=== PATIENT | male | born 1965 | race Caucasian/White ===

== ENCOUNTER 2020-01-15 13:14 | Emergency (ER) | payer OTHER ==
[2020-01-15 13:51] LABS: ABSOLUTE EOSINOPHILS # (AUTO) 0.4 10^3/uL (0.0-0.6); ABSOLUTE LYMPHOCYTES (AUTO) 2.2 10^3/uL (0.5-4.7); ABSOLUTE MONOCYTES (AUTO) 0.7 10^3/uL (0.1-1.4); ABSOLUTE NEUT (AUTO) 6.6 10^3/uL (1.7-8.2); BASOPHILS % (AUTO) 0.5 % (0-2); EOSINOPHILS % (AUTO) 3.8 % (0-6); HEMATOCRIT 43.4 % (37.9-51.0); MEAN CORPUSCULAR HEMOGLOBIN 29.6 pg (27.0-33.4); MEAN CORPUSCULAR HGB CONC 34.5 g/dL (32.0-36.0); MEAN CORPUSCULAR VOLUME 86 fl (80-97); MONOCYTES % (AUTO) 7.2 % (3-13); PLATELET COUNT 246 10^3/uL (150-450); RED BLOOD COUNT 5.07 10^6/uL (4.35-5.55); RED CELL DISTRIBUTION WIDTH 13.9 % (11.5-14.0); SEGMENTED NEUTROPHILS % (AUTO) 66.5 % (42-78); TOTAL CELLS COUNTED % (AUTO) 100 %
[2020-01-15 14:14] LABS: CREATINE KINASE MB 0.58 ng/mL (<4.55)
[2020-01-15 14:19] LABS: TROPONIN I < 0.012 ng/mL
[2020-01-15 14:26] LABS: ALBUMIN 3.8 g/dL (3.5-5.0); ALKALINE PHOSPHATASE 88 U/L (38-126); ANION GAP 9 (5-19); ASPARTATE AMINO TRANSFERASE 53 U/L (17-59); BILIRUBIN,DIRECT 0.2 mg/dL (0.0-0.4); BILIRUBIN,TOTAL 0.5 mg/dL (0.2-1.3); BLOOD UREA NITROGEN 24 mg/dL (7-20); CALCIUM 9.3 mg/dL (8.4-10.2); CARBON DIOXIDE 26 mmol/L (22-30); CHLORIDE 104 mmol/L (98-107); CREATINE KINASE 75 U/L (55-170); GLUCOSE 96 mg/dL (75-110); POTASSIUM 4.3 mmol/L (3.6-5.0); TOTAL PROTEIN 6.7 g/dL (6.3-8.2)
[2020-01-15] MEDS ORDERED: NORMAL SALINE 1000 ML 1,000 ML IV ONE ×2 (14:34→15:55)
--- NOTE | 2020-01-15 14:35 | ER Document Report ---
ED General - General Chief Complaint: Dizziness Stated Complaint: BLOOD PRESSURE ISSUES Time Seen by Provider: 01/15/20 14:20 Primary Care Provider: POPEYE,JOHN [Primary Care Provider] - Follow up as needed - [facility] Notes: Patient is a 54 y/o male with a hx of HTN who presents with dizziness and hypotension that began earlier today. Patient states that at around 8AM he became dizzy which he describes as being unbalanced and a rocking sensation. He states he took his blood pressure twice, first reading being 80/49 and second reading being 90/50. He went to [facility] [address] and was found to be hypoten sive and they called EMS to take him to the emergency department. Patient reports tension-like headache but denies blurred vision, syncope, nausea, vomiting, chest pain, shortness of breath, and abdominal pain. He denies any recent changes to his blood pressure medication and he last took his medications yesterday afternoon. He denies taking any medications this morning. Patient denies tobacco or alcohol use. - Related Data Allergies/Adverse Reactions: morphine [Morphine] Allergy (Verified 07/16/13 18:30) Past Medical History - General Information source: Patient - Social History Smoking Status: Unknown if Ever Smoked Frequency of alcohol use: None Family History: Reviewed & Not Pertinent Patient has homicidal ideation: No - Past Medical History Cardiac Medical History: Reports: Hx Hypercholesterolemia - borderline, Hx H ypertension Denies: Hx Atrial Fibrillation, Hx Congestive Heart Failure, Hx Coronary Artery Disease, Hx Heart Attack, Hx Peripheral Vascular Disease, Hx Pulmonary Embolism, Hx Heart Murmur Pulmonary Medical History: Reports: Hx Bronchitis, Hx Pneumonia Denies: Hx Asthma, Hx COPD, Hx Respiratory Failure, Hx Sleep Apnea, Hx Tuberculosis Neurological Medical History: Denies: Hx Cerebrovascular Accident, Hx Seizures Endocrine Medical History: Denies: Hx Graves' Disease, Hx Hyperthyroidism, Hx Hypothyroidism Renal/ Medical History: Denies: Hx Benign Prostatic Hyperplasia, Hx End Stage Renal Disease, Hx Kidney Stones, Hx Peritoneal Dialysis Malignancy Medical History: Denies Hx Leukemia, Denies Hx Lung Cancer GI Medical History: Reports: Hx Gastroesophageal Reflux Disease, Hx Hiatal Hernia. Denies: Hx Crohn's Disease, Hx Irritable Bowel, Hx Liver Failure, Hx Pancreatitis, Hx Ulcer Musculoskeletal Medical History: Reports Hx Arthritis, Denies Hx Fibromyalgia, Denies Hx Muscular Dystrophy, Denies Hx Systemic Lupus Erythematosus Psychiatric Medical History: Denies: Hx Bipolar Disorder, Hx Depression, Hx Post Traumatic Stress Disorder, Hx Schizophrenia Traumatic Medical History: Denies: Hx Fractures Infectious Medical History: Denies: Hx HIV Past Surgical History: Reports: Hx Cholecystectomy. Denies: Hx Appendectomy, Hx Bowel Surgery, Hx Colostomy, Hx Coronary Artery Bypass Graft, Hx Gastric Bypass Surgery, Hx Herniorrhaphy, Hx Pacemaker, Hx Tonsillectomy - Immunizations Immunizations up to date: Yes Hx Diphtheria, Pertussis, Tetanus Vaccination: Yes Hx Pneumococcal Vaccination: 02/28/13 Review of Systems - Review of Systems Constitutional: No symptoms reported EENT: No symptoms reported Cardiovascular: No symptoms reported Respiratory: No symptoms reported Gastrointestinal: No symptoms reported Genitourinary: No symptoms reported Male Genitourinary: No symptoms reported Musculoskeletal: No symptoms reported Skin: No symptoms reported Hematologic/Lymphatic: No symptoms reported Neurological/Psychological: See HPI Physical Exam - Vital signs Vitals: Resp Pulse Ox 17 93 01/15/20 13:26 01/15/20 13:26 - Notes Notes: PHYSICAL EXAMINATION: VITALS: Vitals reviewed and mildly hypotensive. GENERAL: Well-appearing, well-nourished and in no acute distress. HEAD: Atraumatic, normocephalic. EYES: Pupils equal, round, and reactive to light, extraocular movements intact, sclera anicteric, conjunctiva are normal. ENT: Nares patent. Moist mucous membranes. Oropharynx clear without exudates. NECK: Normal range of motion, supple without lymphadenopathy. LUNGS: Breath sounds clear to auscultation bilaterally and equal. No wheezes, rales, or rhonchi. HEART: Regular, rate, and rhythm without murmurs. ABDOMEN: Soft, nontender, normoactive bowel sounds. No guarding, no rebound. No masses appreciated. EXTREMITIES: Normal range of motion, no pitting or edema. No cyanosis. NEUROLOGICAL: No focal neurological deficits. Moves all extremities spo ntaneously and on command. No pronator drift. [id number] testing normal. PSYCH: Normal mood, normal affect. SKIN: Warm, Dry, normal turgor, no rashes or lesions noted. Course - Re-evaluation Re-evalutation: Patient is a 54 y/o male who presents with dizziness and hypotension that began earlier today. Patient mildly hypotensive with a BP of 109/59. Physical exam normal with no nystagmus, CBC is unremarkable and within normal limits. CMP shows an elevated Cr of 1.82 and BUN of 24. UA shows elevated protein of 30, specific gravity of 1.020 and hyaline casts of 20 which are consistent with dehydration. Troponin negative. Patient was unable to tolerate orthostatics as he became dizzy while standing. BP was 113/70 while supine and 109/74 while sitting. 01/15/20 15:55 I spoke with my supervising physician, Dr. Rose, concerning this patient. He recommends giving another 1L of NS and reassessing the patient afterwards to see if he can ambulate well without becoming dizzy and hypotensive. 01/15/20 19:05 Patient re-evaluated after 2nd liter of IVF. He states he is feeling better. With RN, we reassessed his orthostatics which improved significantly. Standing BP of 128/87. Patient denies any dizziness. Patient's symptoms and workup are consistent with dehydration. I spoke with Dr. Rose again and he recommends having the patient stop his HCTZ until he can be evaluated by his PCP. Return precautions and follow up instructions given. Patient will be discharged home. Patient understands and is in agreement with the plan. - Vital Signs Vital signs: Temp Pulse Resp BP Pulse Ox 98.2 F 74 14 108/79 92 01/15/20 13:34 01/15/20 15:30 01/15/20 16:47 01/15/20 16:47 01/15/20 16:47 - Laboratory Result Diagrams: 01/15/20 13:26 01/15/20 13:26 Laboratory results interpreted by me: 01/15/20 01/15/20 13:26 14:38 BUN 24 H Creatinine 1.82 H Est GFR ( Amer) 47 L Est GFR (MDRD) Non-Af 39 L ALT 73 H Urine Protein 30 H Urine Urobilinogen 2.0 H - EKG Interpretation by Me Additional EKG results interpreted by me: Sinus rhythm with a rate of 69. QTc 425. Borderline left axis deviation. Premature atrial complex. No T wave inversions or ST segment changes in consecutive leads. Discharge - Discharge Clinical Impression: Dehydration, Dizziness Hypotension Qualifiers: Hypotension type: unspecified hypotension type Qualified Code(s): I95.9 - Hypotension, unspecified Condition: Stable Disposition: HOME, SELF-CARE Additional Instructions: Stop taking hydrocholorthiazide until you consult your primary care provider Dehydration Dehydration can result from vomiting or diarrhea, fever, or decreased intake of fluids. If severe, hospitalization and intravenous fluids may be required. Most cases are treated at home with fluids by mouth. For the next 24 hours, drink lots of clear fluids. In mild cases, this can be soda pop or sports drinks. For more severe dehydration, the doctor may recommend special fluids such as Pedialyte or Lytren. Try to get three liters (3 quarts) of fluid per day. If vomiting occurs, continue to drink the fluids frequently (every 15 to 20 minutes), but in small amounts (one or two ounces). Depending on the type of dehydration, the doctor may prescribe antinausea medicine or potassium replacements. Call the doctor or return for re-examination if you become progressively weak, vomit repeatedly, or have other new symptoms. Hypotension Your blood pressure is low. Low blood pressure can make you feel weak, lightheaded, and even make you pass out. Low blood pressure can be caused by dehydration or blood loss. Problems with the heart, kidneys, or blood vessels can cause hypotension. Certain medications can make your blood pressure abnormally low. Infection can lower blood pressure. In many cases, the person is totally healthy, but for unknown reasons, the blood pressure falls when they stand up. This is called benign orthostatic hypotension. The treatment of low blood pressure depends on the severity of the symptoms, and on the underlying cause. Sometimes it's not possible to identify a cause. At this time, it doesn't appear that the problem is serious enough to require hospitalization. Medicines that could be contributing to the problem can be withheld or reduced in dosage if your doctor approves. Get plenty of fluids. Eat a healthy diet. Be careful to stand up slowly. If you feel suddenly lightheaded or if your vision goes collins, sit or lie down at once. Don't drive or operate machinery until the symptoms are under control. Return or call the doctor if you develop fainting or severe dizziness, severe weakness, problems with vision, chest pain, shortness of breath, fever, or confusion. Referrals: [facility] [Primary [facility]] - Follow up as needed
[2020-01-15 14:57] LABS: APPEARANCE,URINE CLEAR; BILIRUBIN,URINE NEGATIVE (NEGATIVE); COLOR,URINE AMBER; GLUCOSE, URINE NEGATIVE (NEGATIVE); KETONES,URINE NEGATIVE (NEGATIVE); LEUKOCYTE ESTERASE,URINE NEGATIVE (NEGATIVE); NITRITE,URINE NEGATIVE (NEGATIVE); PROTEIN,URINE 30 mg/dL (NEGATIVE)
--- NOTE | 2020-01-15 15:16 | EKG REPORT ---
SEVERITY:- OTHERWISE NORMAL ECG - SINUS RHYTHM ATRIAL PREMATURE COMPLEX BORDERLINE LEFT AXIS DEVIATION : Confirmed by: Carmen Watkins MD 15-Jan-2020 15:16:08
[2020-01-15 19:31] VITALS: BP 128/87
== END 2020-01-15 19:31 | disposition home or self-care (01) ==
LOC: ER 13:14
DX: E86.0 Dehydration (principal); R42 Dizziness and giddiness; I95.9 Hypotension, unspecified; I10 Essential (primary) hypertension; E78.00 Pure hypercholesterolemia, unspecified; Z88.6 Allergy status to analgesic agent; Z90.49 Acquired absence of other specified parts of digestive tract
CPT/HCPCS: 93005; 99284; 96360; 96361; 36415; 82553; 82550; 85025; 80053; 81001; 84484; 93010; J7030

== ENCOUNTER 2020-01-16 20:40 | Emergency (ER) | payer OTHER ==
--- NOTE | 2020-01-16 21:11 | ER Document Report ---
ED Medical Screen (RME) - General Chief Complaint: Chest Pain > 30 Stated Complaint: CHEST PAIN Time Seen by Provider: 01/16/20 21:08 Primary Care Provider: POPEYE,JOHN [Primary Care Provider] - Follow up as needed Mode of Arrival: Ambulatory Information source: Patient Notes: 54-year-old male presented to ED for complaint of right upper chest pain x5 tonight. He states there is an electric-like pain then numbness to both arms and hands. He states he is not having pain right now but he does feel numbness in both hands and fingers. He states this all started about 6 or 630. Denies any previous cardiac problems. Yesterday he was here for dizziness and low blood pressure they gave him fluids he felt better and he went home. We will repeat chest x-ray blood and he will be seen again for this new problem. Blood pressure is 157/87 at this time temps 98 sats 97% 72 pulse of 22 respirations. I have greeted and performed a rapid initial assessment of this patient. A comprehensive ED assessment and evaluation of the patient, analysis of test results and completion of medical decision making process will be conducted by an additional ED providers. - Related Data Allergies/Adverse Reactions: morphine [Morphine] Allergy (Verified 07/16/13 18:30) Home Medications: Seen yesterday for dizzy and low BP visit Past Medical History - Social History Chew tobacco use (# tins/day): No Frequency of alcohol use: None Drug Abuse: None - Past Medical History Cardiac Medical History: Reports: Hx Hypercholesterolemia - borderline, Hx Hypertension Denies: Hx Atrial Fibrillation, Hx Congestive Heart Failure, Hx Coronary Artery Disease, Hx Heart Attack, Hx Peripheral Vascular Disease, Hx Pulmonary Embolism, Hx Heart Murmur Pulmonary Medical History: Reports: Hx Bronchitis, Hx Pneumonia Denies: Hx Asthma, Hx COPD, Hx Respiratory Failure, Hx Sleep Apnea, Hx Tuberculosis Neurological Medical History: Denies: Hx Cerebrovascular Accident, Hx Seizures Endocrine Medical History: Denies: Hx Graves' Disease, Hx Hyperthyroidism, Hx Hypothyroidism Renal/ Medical History: Denies: Hx Benign Prostatic Hyperplasia, Hx End Stage Renal Disease, Hx Kidney Stones, Hx Peritoneal Dialysis Malignancy Medical History: Denies Hx Leukemia, Denies Hx Lung Cancer GI Medical History: Reports: Hx Gastroesophageal Reflux Disease, Hx Hiatal Hernia. Denies: Hx Crohn's Disease, Hx Irritable Bowel, Hx Liver Failure, Hx Pancreatitis, Hx Ulcer Musculoskeltal Medical History: Reports Hx Arthritis, Denies Hx Fibromyalgia, Denies Hx Muscular Dystrophy, Denies Hx Systemic Lupus Erythematosus Psychiatric Medical History: Denies: Hx Bipolar Disorder, Hx Depression, Hx Post Traumatic Stress Disorder, Hx Schizophrenia Traumatic Medical History: Denies: Hx Fractures Infectious Medical History: Denies: Hx HIV Past Surgical History: Reports: Hx Cholecystectomy. Denies: Hx Appendectomy, Hx Bowel Surgery, Hx Colostomy, Hx Coronary Artery Bypass Graft, Hx Gastric Bypass Surgery, Hx Herniorrhaphy, Hx Pacemaker, Hx Tonsillectomy - Immunizations Immunizations up to date: Yes Hx Diphtheria, Pertussis, Tetanus Vaccination: Yes Physical Exam - Vital signs Vitals: Temp Pulse Resp BP Pulse Ox 98.0 F 72 22 H 157/87 H 97 01/16/20 20:52 01/16/20 20:52 01/16/20 20:52 01/16/20 20:52 01/16/20 20:52 Course - Vital Signs Vital signs: Temp Pulse Resp BP Pulse Ox 98.0 F 72 22 H 157/87 H 97 01/16/20 20:52 01/16/20 20:52 01/16/20 20:52 01/16/20 20:52 01/16/20 20:52 Doctor's Discharge - Discharge Referrals: [facility] [[facility]] - Follow up as needed
--- NOTE | 2020-01-16 22:04 | RADIOLOGY REPORT (SQ) ---
EXAM DESCRIPTION: XR CHEST 2 VIEWS COMPLETED DATE/TME: 01/16/2020 21:31 CLINICAL HISTORY: 54 years, Male, Chest pain to the right numbness down the fingers COMPARISON: Chest x-ray 07/16/2013 TECHNIQUE: PA and lateral views. FINDINGS: Cardiomediastinal silhouette is not enlarged. Question subtle atelectasis medial left lower lobe. No suspicious pleural disease..
[2020-01-16 22:10] LABS: APPEARANCE,URINE CLEAR; BILIRUBIN,URINE NEGATIVE (NEGATIVE); COLOR,URINE STRAW; GLUCOSE, URINE NEGATIVE (NEGATIVE); KETONES,URINE NEGATIVE (NEGATIVE); LEUKOCYTE ESTERASE,URINE NEGATIVE (NEGATIVE); NITRITE,URINE NEGATIVE (NEGATIVE); PROTEIN,URINE NEGATIVE (NEGATIVE); URINE SPECIFIC GRAVITY 1.006; UROBILINOGEN,URINE NEGATIVE mg/dL (<2.0)
[2020-01-16 22:15] LABS: ABSOLUTE EOSINOPHILS # (AUTO) 0.4 10^3/uL (0.0-0.6); ABSOLUTE LYMPHOCYTES (AUTO) 1.3 10^3/uL (0.5-4.7); ABSOLUTE MONOCYTES (AUTO) 0.4 10^3/uL (0.1-1.4); ABSOLUTE NEUT (AUTO) 5.6 10^3/uL (1.7-8.2); BASOPHILS % (AUTO) 0.5 % (0-2); HEMATOCRIT 42.7 % (37.9-51.0); HEMOGLOBIN 14.9 g/dL (13.5-17.0); LYMPHOCYTES % (AUTO) 17.2 % (13-45); MEAN CORPUSCULAR HEMOGLOBIN 29.7 pg (27.0-33.4); MEAN CORPUSCULAR HGB CONC 34.9 g/dL (32.0-36.0); MEAN CORPUSCULAR VOLUME 85 fl (80-97); MONOCYTES % (AUTO) 5.8 % (3-13); PLATELET COUNT 259 10^3/uL (150-450); RED BLOOD COUNT 5.01 10^6/uL (4.35-5.55); RED CELL DISTRIBUTION WIDTH 13.3 % (11.5-14.0); SEGMENTED NEUTROPHILS % (AUTO) 71.5 % (42-78); TOTAL CELLS COUNTED % (AUTO) 100 %; WHITE BLOOD COUNT 7.8 10^3/uL (4.0-10.5)
[2020-01-16 22:31] LABS: ALKALINE PHOSPHATASE 91 U/L (38-126); ANION GAP 8 (5-19); ASPARTATE AMINO TRANSFERASE 45 U/L (17-59); BILIRUBIN,DIRECT 0.1 mg/dL (0.0-0.4); BILIRUBIN,TOTAL 0.4 mg/dL (0.2-1.3); BLOOD UREA NITROGEN 15 mg/dL (7-20); CALCIUM 9.4 mg/dL (8.4-10.2); CARBON DIOXIDE 28 mmol/L (22-30); CHLORIDE 101 mmol/L (98-107); CREATINE KINASE 89 U/L (55-170); GLUCOSE 96 mg/dL (75-110); POTASSIUM 4.1 mmol/L (3.6-5.0)
[2020-01-17] MEDS ORDERED: ASPIRIN 325 MG TABLET PO ONE (01:34)
--- NOTE | 2020-01-17 02:14 | ER Document Report ---
ED Cardiac - General Chief Complaint: Chest Pain > 30 Stated Complaint: CHEST PAIN Time Seen by Provider: 01/16/20 21:08 Primary Care Provider: JASON YAN MD [ACTIVE PROVISIONAL STAFF] - Follow up in 3-5 days [facility] [Primary [facility] Provider] - Follow up as needed Mode of Arrival: Ambulatory - [facility] Notes: Patient is a 54-year-old male with a past medical history of back pain and hypertension who presents with chest pain. Patient states he had several episodes this evening of sharp midsternal chest pain that lasts for several seconds and radiates "electric shocks" down both of his arms. Currently denies any chest pain. No shortness of breath. No lightheadedness or dizziness. He was seen in the ER yesterday for low blood pressure and was given fluids and felt much better. He is denying any low blood pressure today. - Related Data Allergies/Adverse Reactions: morphine [Morphine] Allergy (Verified 07/16/13 18:30) Home Medications: Seen yesterday for dizzy and low BP visit Past Medical History - General Information source: Patient - Social History Smoking Status: Never Smoker Chew tobacco use (# tins/day): No Frequency of alcohol use: None Drug Abuse: None Family History: Reviewed & Not Pertinent - Past Medical History Cardiac Medical History: Reports: Hx Hypercholesterolemia - borderline, Hx Hypertension Denies: Hx Atrial Fibrillation, Hx Congestive Heart Failure, Hx Coronary Artery Disease, Hx Heart Attack, Hx Peripheral Vascular Disease, Hx Pulmonary Embolism, Hx Heart Murmur Pulmonary Medical History: Reports: Hx Bronchitis, Hx Pneumonia Denies: Hx Asthma, Hx COPD, Hx Respiratory Failure, Hx Sleep Apnea, Hx Tuberculosis Neurological Medical History: Denies: Hx Cerebrovascular Accident, Hx Seizures Endocrine Medical History: Denies: Hx Graves' Disease, Hx Hyperthyroidism, Hx Hypothyroidism Renal/ Medical History: Denies: Hx Benign Prostatic Hyperplasia, Hx End Stage Renal Disease, Hx Kidney Stones, Hx Peritoneal Dialysis Malignancy Medical History: Denies Hx Leukemia, Denies Hx Lung Cancer GI Medical History: Reports: Hx Gastroesophageal Reflux Disease, Hx Hiatal Hernia. Denies: Hx Crohn's Disease, Hx Irritable Bowel, Hx Liver Failure, Hx Pancreatitis, Hx Ulcer Musculoskeletal Medical History: Reports Hx Arthritis, Denies Hx Fibromyalgia, Denies Hx Muscular Dystrophy, Denies Hx Systemic Lupus Erythematosus Psychiatric Medical History: Denies: Hx Bipolar Disorder, Hx Depression, Hx Post Traumatic Stress Disorder, Hx Schizophrenia Traumatic Medical History: Denies: Hx Fractures Infectious Medical History: Denies: Hx HIV Past Surgical History: Reports: Hx Cholecystectomy. Denies: Hx Appendectomy, Hx Bowel Surgery, Hx Colostomy, Hx Coronary Artery Bypass Graft, Hx Gastric Bypass Surgery, Hx Herniorrhaphy, Hx Pacemaker, Hx Tonsillectomy - Immunizations Immunizations up to date: Yes Hx Diphtheria, Pertussis, Tetanus Vaccination: Yes Hx Pneumococcal Vaccination: 02/28/13 Review of Systems - Review of Systems Notes: CONSTITUTIONAL: No fever, fatigue or weight loss. SKIN: No rash. HENT: No congestion, ear pain, or sore throat. EYES: No recent vision problems or eye pain. CARDIOVASCULAR: Positive for chest pain. RESPIRATORY: No cough, shortness of breath, congestion, or wheezing. GASTROINTESTINAL: No abdominal pain, nausea, vomiting, bloody stools or diarrhea. GENITOURINARY: No dysuria. MUSCULOSKELETAL: No joint pain or swelling. Positive for chronic back pain. NEUROLOGIC: No seizures. No headache, focal weakness or sensory changes. HEMATOLOGIC: No unusual bruising or bleeding. PSYCHIATRIC: No depression or anxiety. Physical Exam - Vital signs Vitals: Temp Pulse Resp BP Pulse Ox 98.0 F 72 22 H 157/87 H 97 01/16/20 20:52 01/16/20 20:52 01/16/20 20:52 01/16/20 20:52 01/16/20 20:52 - General General appearance: Appears well Notes: VITAL SIGNS: Within normal limits. GENERAL: No acute distress, non-toxic appearance. HEAD: Normal with no signs of head trauma. EYES: EOMI, conjunctiva normal, no discharge. EARS: Hearing grossly intact. NOSE: Normal. NECK: Normal range of motion, no tenderness, supple, no lymphadenopathy, No adenopathy, no JVD. CHEST: Clear breath sounds bilaterally. No wheezes, rales, or rhonchi. CARDIAC: Regular rate and rhythm. S1 and S2, without murmurs, gallops, or rubs. VASCULAR: No Edema. Peripheral pulses normal and equal in all extremities. ABDOMEN: Normal and soft with no tenderness, no masses or pulsatile masses. GENITOURINARY: Normal, No tenderness MUSCULOSKELETAL: Good range of motion of all major joints. Extremities without clubbing, cyanosis or edema. NEUROLOGICAL: Alert and oriented x 3. No focal sensory or strength deficits. Speech normal. Follows commands appropriately. PSYCHIATRIC: Normal Affect, judgement and mood. SKIN: Normal appearance with no rashes or lesions. Course - Re-evaluation Re-evalutation: 01/17/20 02:12 Patient's heart score is 2. Patient denies any pain currently. His initial troponin was normal. His second troponin is indeterminate. He had 2 EKGs which show atrial premature complexes but no ST changes. Due to the indeterminate troponin, I will discuss with cardiology. Cardiology stated that patient's symptoms seem atypical for cardiac pain. He is currently pain-free. Cardiology stated that he could follow-up outpatient. Patient is very agreeable to this. He states he does not want to stay in the hospital. Patient was given aspirin. He was given strict return precautions. Patient is very agreeable. 01/17/20 06:11 - Vital Signs Vital signs: Temp Pulse Resp BP Pulse Ox 98.1 F 60 14 142/76 H 96 01/17/20 03:01 01/17/20 00:45 01/17/20 03:01 01/17/20 03:01 01/17/20 03:01 - Laboratory Result Diagrams: 01/16/20 21:37 01/16/20 21:37 Laboratory results interpreted by me: 01/16/20 21:37 Sodium 136.7 L Creatinine 1.43 H Est GFR (MDRD) Non-Af 51 L ALT 73 H - Diagnostic Test Radiology reviewed: Image reviewed, Reports reviewed - EKG Interpretation by Ct EKG shows normal: Sinus rhythm Rate: Normal When compared to previous EKG there are: No significant change Additional EKG results interpreted by me: 01/17/20 02:15 Initial EKG shows this rhythm at a rate of 78. QTc 447. Atrial premature complexes. No acute ST changes. Repeat EKG shows sinus rhythm at a rate of 58. QTc 409. Multiple atrial premature complexes. No acute ST changes. Discharge - Discharge Clinical Impression: Chest pain Qualifiers: Chest pain type: unspecified Qualified Code(s): R07.9 - Chest pain, unspecified Condition: Stable Disposition: HOME, SELF-CARE Instructions: Chest Pain of Unclear Cause ([facility]) Additional Instructions: Please follow-up with your family doctor and cardiology. Please return to the ER immediately for any return of chest pain, shortness of breath, any other concerning symptoms. Referrals: [facility] [Primary [facility]] - Follow up as needed JASON YAN MD [ACTIVE PROVISIONAL STAFF] - Follow up in 3-5 days
[2020-01-17 03:22] VITALS: BP 142/76
--- NOTE | 2020-01-17 08:34 | EKG REPORT ---
SEVERITY:- ABNORMAL ECG - SINUS RHYTHM ATRIAL PREMATURE COMPLEX INCOMPLETE RIGHT BUNDLE BRANCH BLOCK : Confirmed by: Carmen Watkins MD 17-Jan-2020 08:33:12
== END 2020-01-17 03:22 | disposition home or self-care (01) ==
LOC: ER 20:40
DX: R07.9 Chest pain, unspecified (principal); I10 Essential (primary) hypertension; Z88.6 Allergy status to analgesic agent; Z88.5 Allergy status to narcotic agent
CPT/HCPCS: 36415; 71046; 80053; 81001; 82550; 83735; 84484; 85025; 93005; 93010; 99285